=== PATIENT | male | born 1960 | race Caucasian/White ===

== ENCOUNTER 2017-03-12 01:26 | Inpatient (IN) | payer OTHER ==
[~2017-03-12] VITALS: Ht 180.3 cm; Wt 73.3 kg
[2017-03-12] MEDS ORDERED: ZOFRAN 4MG T4 MG/TAB PO (01:43)
[2017-03-12 02:20] LABS: MEAN CELL VOLUME 91 fl (80.0-100.0); MEAN CORPUSCULAR HGB CONC 32 g/dl (33.0-37.0); MEAN PLATELET VOLUME 8.8 fl (7.4-10.4); PLATELET COUNT 246 K/mm3 (130-400); RED BLOOD COUNT 3.05 M/mm3 (4.20-5.60); REDCELL DISTRIBUTION WIDTH-CV 13.4 % (11.5-14.5); WHITE BLOOD COUNT 9.5 K/mm3 (4.8-10.8)
[2017-03-12 02:33] LABS: ADJUSTED CALCIUM 9.2 mg/dL (8.4-10.2); ALBUMIN 2.8 gm/dL (3.5-5.0); BILIRUBIN,TOTAL 0.7 mg/dL (0.0-1.0); CALCIUM 8.2 mg/dL (8.4-10.2); CREATININE, serum 0.86 mg/dL (0.66-1.25); POTASSIUM 4.1 mmol/L (3.4-5.0)
[2017-03-12 02:37] LABS: ADD PATHOLOGY DIFF REVIEW NO; HEMATOCRIT 27.6 % (42.0-52.0); HEMOGLOBIN 8.9 g/dl (13.5-18.0); MEAN CORPUSCULAR HEMOGLOBIN 29 pg (27.0-31.0)
[2017-03-12 02:43] LABS: BAND 1 % (0-10); BASOPHIL 1 % (0-2); EOSINOPHIL 3 % (0-4); METAMYELOCYTE 1 % (0-0); NEUTROPHILS 76 % (42.0-75.2); TOTAL CELLS COUNTED 100
[2017-03-12 02:47] LABS: ANISOCYTOSIS 1+; BURR CELLS 1+; HELMET CELLS 1+; HYPOCHROMIA 1+; MICROCYTOSIS 1+; POIKILOCYTOSIS 2+; POLYCHROMASIA 1+; ROULEAUX 2+
[2017-03-12 04:07] LABS: PH 5 (5-8); SQUAMOUS EPITHELIAL None Seen /hpf; URINE APPEARANCE Clear; URINE BACTERIA None Seen /hpf; URINE BILIRUBIN Negative (NEGATIVE); URINE BLOOD 1+ (NEGATIVE); URINE COLOR Yellow; URINE GLUCOSE Negative (NEGATIVE); URINE KETONE Negative (NEGATIVE); URINE RBC 0-2 /hpf; URINE UROBILINOGEN Negative (NEGATIVE); URINE WBC 0-2 /hpf
[2017-03-12 05:44] VITALS: BP 120/73; PULSE 98; TEMP 98
[2017-03-12 07:34] VITALS: BP 119/67; PULSE 98; TEMP 97.9
[2017-03-12 07:45] VITALS: BP 119/67; PULSE 98
[2017-03-12 09:15] VITALS: BP 124/71; PULSE 94
[2017-03-12 10:15] VITALS: BP 117/69; PULSE 93
[2017-03-12 11:43] VITALS: BP 123/71; PULSE 95; TEMP 97.8
[2017-03-13] MEDS ORDERED: DIALUDIDPCA IV (09:21)
[2017-03-13] MEDS ORDERED: THORAZINE 225 MG/TAB PO (09:22)
[2017-03-13] MEDS ORDERED: TRANSDERM-0.5 MG/21 TD (09:22)
[2017-03-13] MEDS ORDERED: PHENERGAN25 MG RC (09:23)
[2017-03-13] MEDS ORDERED: ATIVAN 2MG/ML2 MG/ML IV (09:25)
[2017-03-13] MEDS ORDERED: ATIVAN 1MG T1 MG/TAB PO (09:25)
[2017-03-13 14:38] VITALS: BP 123/71; PULSE 95; TEMP 97.8
== END 2017-03-13 15:15 | disposition hospice, inpatient (51) | DRG 374 ==
LOC: COL.ER 01:26 → MEDICAL 04:04
PROVIDERS: Emergency Medicine
DX: C18.9 Malignant neoplasm of colon, unspecified (principal); E43 Unspecified severe protein-calorie malnutrition; C78.7 Secondary malignant neoplasm of liver and intrahepatic bile duct; C78.01 Secondary malignant neoplasm of right lung; C78.02 Secondary malignant neoplasm of left lung; C78.89 Secondary malignant neoplasm of other digestive organs; Z51.5 Encounter for palliative care; Z66 Do not resuscitate; E86.0 Dehydration; Z68.22 Body mass index [BMI] 22.0-22.9, adult
CPT/HCPCS: 99223-AI; 99239; J1170; J2060; J2270; J2405; J2550; J3010; J7030; Q9967